=== PATIENT | male | born 2000 | race Caucasian/White ===

== ENCOUNTER 2020-02-11 09:42 | Emergency (ER) | payer BC ==
[~2020-02-11] VITALS: Ht 180.3 cm; Wt 66.4 kg
[2020-02-11 09:55] VITALS: BP 136/84
== END 2020-02-11 10:24 | disposition home or self-care (01) ==
LOC: ER 09:43
DX: R05 Cough (principal); R11.0 Nausea; R19.7 Diarrhea, unspecified; R53.83 Other fatigue; Z20.828 Contact with and (suspected) exposure to other viral communicable diseases; F17.200 Nicotine dependence, unspecified, uncomplicated
CPT/HCPCS: 36415; 87635; 99283